=== PATIENT | male | born 2000 | race Caucasian/White ===

== ENCOUNTER 2019-04-19 23:52 | Emergency (ER) | payer MEDICAID ==
[~2019-04-19] VITALS: Ht 182.9 cm; Wt 119.8 kg
[2019-04-20] MEDS ORDERED: PENICILLIN VK250 MG PO (00:24)
[2019-04-20 00:30] VITALS: BP 138/78
== END 2019-04-20 00:30 | disposition home or self-care (01) ==
LOC: M.ERS 23:52
DX: J02.0 Streptococcal pharyngitis (principal)